=== PATIENT | male | born 1980 | race Two or more races ===

== ENCOUNTER 2018-01-19 18:01 | Inpatient (IN) | payer SELFPAY ==
[~2018-01-19] VITALS: Ht 144.8 cm; Wt 54.0 kg
[2018-01-19] MEDS ORDERED: NKM (18:11)
[2018-01-19 18:12] VITALS: BP 129/89
[2018-01-19] MEDS ORDERED: Morphine Sulfate 4mg/ml Inj IVP ONE (18:45)
--- NOTE | 2018-01-19 18:52 | Emergency Room Report ---
History of Present Illness General Chief Complaint: Abdominal Pain Source: Patient Present Illness HPI 37-year-old male, unknown past medical history however likely alcohol abuse, ascites, has required paracentesis in the past, has last paracentesis was one month ago, presenting with abdominal pain. States that he has had abdominal pain for the last 3 days. Peripartum restrained but denies nausea vomiting diarrhea. Allergies: Coded Allergies: No Known Allergies (Verified , 07/05/07) Patient History Past Medical History: see triage record Past Surgical History: none Pertinent Family History: none Reviewed Nursing Documentation: PMH: Agreed; PSxH: Agreed Nursing Documentation-PMH Past Medical History: No History, Except For Hx Hypertension: Yes Hx Diabetes: Yes Hx Gastrointestinal Problems: Yes - stomach ulcer, liver cirrhosis Review of Systems All Other Systems: negative except mentioned in HPI Physical Exam Vital Signs Date Time Temp Pulse Resp B/P (MAP) Pulse Ox O2 Delivery O2 Flow Rate FiO2 01/19/18 18:05 98.4 129 24 142/103 98 Room Air 98.4 Sp02 EP Interpretation: reviewed, normal General Appearance: alert, GCS 15, non-toxic, moderate distress Head: normocephalic, atraumatic Eyes: bilateral eye normal inspection, bilateral eye PERRL, bilateral eye EOMI ENT: normal ENT inspection, normal pharynx, normal voice, moist mucus membranes Neck: normal inspection, full range of motion, supple Respiratory: normal inspection, lungs clear, normal breath sounds, no respiratory distress, no retraction, no wheezing, speaking full sentences, chest symmetrical Cardiovascular #1: normal inspection, regular rate, rhythm, no edema, normal capillary refill Cardiovascular #2: 2+ radial (R), 2+ radial (L) Gastrointestinal: other - ascites with generalized tenderness Genitourinary: no CVA tenderness Musculoskeletal: normal inspection, back normal, normal range of motion, non- tender Neurologic: normal inspection, alert, oriented x3, responsive, motor strength/ tone normal, sensory intact, normal gait, speech normal Psychiatric: normal inspection, judgement/insight normal, memory normal Skin: normal inspection, normal color, no rash, warm/dry, well hydrated, normal turgor Procedures Additional Procedure Procedure Narrative Procedure: Paracentesis Paracentesis performed, right lower quadrant, yellow ascitic fluid obtained Full sterile precautions Patient tolerated procedure well No complications Medical Decision Making Diagnostic Impression: Primary Impression: Ascites Additional Impressions: Cirrhosis Hypokalemia Abdominal pain ER Course 37-year-old male, ascites, abdominal pain Differential Diagnosis: SBP, Gastritis, gastroenteritis, cholecystitis, appendicitis, diverticulitis, SBO, mesenteric ischemia, UTI/pyelo Plan: Basic labs, ua, ekg pain control, IVF CT abdopelvis Paracentesis ER course: Paracentesis performed, 6 L removed, Patient's abdomen now more soft and less tender patient remains tachycardic, heart rate 130s, blood pressure is normal Ceftriaxone given Disposition: Admitted to telemetry Discussed with Dr. montgomery who has accepted patient for admission Strict return precautions discussed with patient such as fever, chills, worsening/severe abdominal pain, nausea, vomiting, black or bloody stools, which may indicate severe illness. Patient verbalizes understanding and agrees with plan. Please note that this Emergency Department Report was dictated using [employer] account executive technology software, occasionally this can lead to erroneous entry secondary to interpretation by the dictation equipment EKG Diagnostic Results EP Interpretation: Yes Rate tachycardic Rhythm: NSR ST Segments: T-wave inversions in leads 3, aVF, V5 and V6, V3 V4 ASA given to patient: No Rhythm Strip EP Interpretation: Yes Rate: 126 Rhythm: NSR, no PVCs, no ectopy Chest X-ray CXR: Ordered: Yes 1 view Indication: Pain EP interpretation: Yes Interpretation: ELEVATED bl hemidiaphragm 2/2 to ascites Impression: ELEVATED bl hemidiaphragm 2/2 to ascites Electronically signed by Clay Sosa MD Laboratory Tests Test 01/19/18 19:00 01/19/18 19:49 White Blood Count 6.0 K/UL (4.8-10.8) Red Blood Count 2.71 M/UL (4.70-6.10) L Hemoglobin 8.6 G/DL (14.2-18.0) L Hematocrit 26.3 % (42.0-52.0) L Mean Corpuscular Volume 97 FL (80-99) Mean Corpuscular Hemoglobin 31.6 PG (27.0-31.0) H Mean Corpuscular Hemoglobin Concent 32.6 G/DL (32.0-36.0) Red Cell Distribution Width 13.8 % (11.6-14.8) Platelet Count 120 K/UL (150-450) L Mean Platelet Volume 6.2 FL (6.5-10.1) L Neutrophils (%) (Auto) 64.9 % (45.0-75.0) Lymphocytes (%) (Auto) 22.4 % (20.0-45.0) Monocytes (%) (Auto) 8.9 % (1.0-10.0) Eosinophils (%) (Auto) 2.6 % (0.0-3.0) Basophils (%) (Auto) 1.3 % (0.0-2.0) Sodium Level 142 MMOL/L (136-145) Potassium Level 3.2 MMOL/L (3.5-5.1) L Chloride Level 112 MMOL/L (98-107) H Carbon Dioxide Level 21 MMOL/L (21-32) Anion Gap 10 mmol/L (5-15) Blood Urea Nitrogen 13 mg/dL (7-18) Creatinine 0.7 MG/DL (0.55-1.30) Estimate Glomerular Filtration Rate > 60 mL/min (>60) Glucose Level 115 MG/DL (74-106) H Lactic Acid Level 1.80 mmol/L (0.66-2.22) Calcium Level 7.6 MG/DL (8.5-10.1) L Total Bilirubin 1.2 MG/DL (0.2-1.0) H Direct Bilirubin 0.8 MG/DL (0.0-0.3) H Aspartate Amino Transferase (AST) 63 U/L (15-37) H Alanine Aminotransferase (ALT) 18 U/L (12-78) Alkaline Phosphatase 251 U/L (46-116) H Total Creatine Kinase 37 U/L (26-308) Troponin I 0.001 ng/mL (0.000-0.056) Pro-B-Type Natriuretic Peptide 180 pg/mL (0-125) H Total Protein 6.7 G/DL (6.4-8.2) Albumin 2.2 G/DL (3.4-5.0) L Globulin 4.5 g/dL Albumin/Globulin Ratio 0.5 (1.0-2.7) L Lipase 231 U/L (73-393) Serum Alcohol 216 mg/dL Body Fluid Source Pending Body Fluid Volume Pending Body Fluid Appearance Pending Body Fluid RBC Pending Body Fluid Total Nucleated Cells Pending Body Fluid Polynuclear WBCs (%) Pending Body Fluid Mononuclear WBCs (%) Pending Body Fluid Mesothelial Cells (%) Pending Body Fluid Total Protein Pending Body Fluid Albumin Pending CT/MRI/US Diagnostic Results CT/MRI/US Diagnostic Results : Imaging Test Ordered: CT ABDO PELVIS Impression CT ABDOMEN & PELVIS With Contrast: Compared to CT abdomen and pelvis 07/05/2007 Bilateral consolidation, may be due to pneumonia or malignancy. Followup to clearing. Small bilateral pleural effusions. Evidence of enterocolitis, infectious or inflammatory, with diffuse small and large bowel wall thickening and adjacent edema. No bowel obstruction. Unremarkable appendix. No CT evidence of acute cholecystitis or acute pancreatitis. No urinary obstruction. Urinary bladder wall thickening, likely due to cystitis. Mild splenomegaly. Moderate ascites. No free air. Last Vital Signs Date Time Temp Pulse Resp B/P (MAP) Pulse Ox O2 Delivery O2 Flow Rate FiO2 01/19/18 18:12 98.5 128 24 129/89 97 Room Air 98.5 Disposition: ADMITTED INPATIENT Condition: Serious Clay Sosa M.D. Jan 19, 2018 18:51
[2018-01-19 19:26] LABS: BASOPHILS % (AUTO) 1.3 % (0.0-2.0); EOSINOPHILS % (AUTO) 2.6 % (0.0-3.0); HEMATOCRIT 26.3 % (42.0-52.0); HEMOGLOBIN 8.6 G/DL (14.2-18.0); LYMPHOCYTES % (AUTO) 22.4 % (20.0-45.0); MEAN CORPUSCULAR VOLUME 97 FL (80-99); MONOCYTES % (AUTO) 8.9 % (1.0-10.0); NEUTROPHILS % (AUTO) 64.9 % (45.0-75.0); PLATELET COUNT 120 K/UL (150-450); RED BLOOD COUNT 2.71 M/UL (4.70-6.10); RED CELL DISTRIBUTION WIDTH 13.8 % (11.6-14.8)
[2018-01-19 19:37] LABS: ANION GAP 10 mmol/L (5-15); BLOOD UREA NITROGEN 13 mg/dL (7-18); CALCIUM 7.6 MG/DL (8.5-10.1); CARBON DIOXIDE 21 MMOL/L (21-32); CHLORIDE 112 MMOL/L (98-107); CREATININE 0.7 MG/DL (0.55-1.30); POTASSIUM 3.2 MMOL/L (3.5-5.1); SODIUM 142 MMOL/L (136-145)
[2018-01-19 19:53] LABS: ALANINE AMINOTRANSFERASE 18 U/L (12-78); ALBUMIN 2.2 G/DL (3.4-5.0); ALBUMIN/GLOBULIN RATIO 0.5 (1.0-2.7); ALKALINE PHOSPHATASE 251 U/L (46-116); ASPARTATE AMINO TRANSFERASE 63 U/L (15-37); BILIRUBIN,TOTAL 1.2 MG/DL (0.2-1.0); CREATINE KINASE 37 U/L (26-308)
[2018-01-19 20:02] LABS: BILIRUBIN,DIRECT 0.8 MG/DL (0.0-0.3)
[2018-01-19] MEDS ORDERED: cefTRIAXone 1 GM in NS 55 ML IVPB ONE (20:15)
[2018-01-19 21:20] VITALS: BP 112/78
[2018-01-19 21:48] VITALS: BP 123/83
[2018-01-19] MEDS ORDERED: LORazepam Inj 2mg/ml 1ml IV PRN (22:00)
[2018-01-19] MEDS ORDERED: Mylanta II UD 30ml ORAL PRN (22:00)
[2018-01-19] MEDS ORDERED: Miralax 17gm pkt ORAL PRN (22:00)
[2018-01-19] MEDS ORDERED: Zolpidem 5mg tab ORAL PRN (22:00)
[2018-01-20] VITALS: BP 123/83
[2018-01-20] MEDS: Cefepime HCl 1 GM in D5W 110 ML IV SCH ×4 (00:35→21:19)
[2018-01-20] MEDS: Lactulose 20gm/30ml UDC ORAL SCH ×4 (00:35→18:05)
[2018-01-20] MEDS: Morphine Sulfate 4mg/ml Inj IVP PRN ×2 (00:41→12:56)
[2018-01-20 04:00] VITALS: BP 134/71
[2018-01-20 05:16] LABS: BASOPHILS % (AUTO) 1.5 % (0.0-2.0); EOSINOPHILS % (AUTO) 1.6 % (0.0-3.0); HEMATOCRIT 24.9 % (42.0-52.0); HEMOGLOBIN 8.6 G/DL (14.2-18.0); LYMPHOCYTES % (AUTO) 18.5 % (20.0-45.0); MEAN CORPUSCULAR VOLUME 96 FL (80-99); MONOCYTES % (AUTO) 10.4 % (1.0-10.0); NEUTROPHILS % (AUTO) 68.1 % (45.0-75.0); PLATELET COUNT 103 K/UL (150-450); RED BLOOD COUNT 2.61 M/UL (4.70-6.10); RED CELL DISTRIBUTION WIDTH 13.7 % (11.6-14.8); WHITE BLOOD COUNT 4.1 K/UL (4.8-10.8)
[2018-01-20 05:30] LABS: INR 1.5 (0.9-1.1)
[2018-01-20 05:37] LABS: AMMONIA 70 umol/L (11-32)
[2018-01-20 05:42] LABS: ANION GAP 9 mmol/L (5-15); BLOOD UREA NITROGEN 11 mg/dL (7-18); CALCIUM 7.6 MG/DL (8.5-10.1); CARBON DIOXIDE 22 MMOL/L (21-32); CHLORIDE 111 MMOL/L (98-107); CREATININE 0.6 MG/DL (0.55-1.30); POTASSIUM 3.7 MMOL/L (3.5-5.1); SODIUM 141 MMOL/L (136-145)
[2018-01-20 05:51] LABS: ALANINE AMINOTRANSFERASE 14 U/L (12-78); ALBUMIN 1.8 G/DL (3.4-5.0); ALBUMIN/GLOBULIN RATIO 0.4 (1.0-2.7); ALKALINE PHOSPHATASE 214 U/L (46-116); ASPARTATE AMINO TRANSFERASE 55 U/L (15-37); BILIRUBIN,TOTAL 1.1 MG/DL (0.2-1.0); CHOLESTEROL 137 MG/DL (< 200); HDL CHOLESTEROL 43 MG/DL (40-60); TRIGLYCERIDES 62 MG/DL (30-150)
[2018-01-20 06:41] LABS: BILIRUBIN,DIRECT 0.6 MG/DL (0.0-0.3)
[2018-01-20 08:12] VITALS: BP 136/93
--- NOTE | 2018-01-20 09:42 | Diagnostic Imaging Report ---
Clinical Indication: Abdominal pain, distention, status post paracentesis Technique: No oral contrast utilized, per emergency room physician request IV administration nonionic contrast. Venous phase spiral acquisition obtained through the abdomen and pelvis. Multiplanar reconstructions were generated. Total dose length product 718.69 mGycm. CTDIvol(s) 11.59 mGy. Dose reduction achieved using automated exposure control Comparison: 07/05/2007 Findings: Gas bubbles are seen in the right abdominal wall musculature, likely related to recent paracentesis. There is a moderate to large amount of ascites fluid present. No free intraperitoneal air demonstrated. The ascites fluid demonstrates normal fluid attenuation. There are small bilateral pleural effusions present. There is resultant compressive atelectasis at both lung bases. There is also patchy areas of parenchymal consolidation bilaterally There is mild edema of the subcutaneous fat. The heart is mildly enlarged The stomach is filled with food. Lack of enteric contrast limits assessment of solid organs. Proximal small bowel loops are mildly dilated and diffusely thick walled. No abrupt transition point is demonstrated. Distal small bowel loops are nondilated, but the plaza appear mildly edematous. What is probably a normal appendix is demonstrated. There is mild thickening of the wall of the ascending and transverse colon, more questionable thickening of the wall of the distal colon. There are a few colonic diverticula. No free intraperitoneal air. The distal esophagus, stomach, duodenum are unremarkable. There is a small umbilical hernia which contains fluid. The liver is normal in attenuation on the current exam, unlike previously. However, it is considerably smaller and there is surface nodularity. No focal hepatic abnormality There has been interim development of a recanalized periumbilical vein varices as well as small perigastric and periesophageal varices. The spleen is now enlarged. This is a new finding since the prior study. It measures 15.5 cm long axis dimension. The kidneys are unremarkable. No retroperitoneal or mesenteric mass or adenopathy. No pelvic mass or adenopathy. The bladder wall is equivocally mildly thickened, but it is not very distended The bones are unremarkable except for mild degenerative changes of the lumbosacral junction. Impression: Moderately dilated thick walled proximal small bowel loops. Possibly a manifestation of anasarca (see below) but more likely indicates enteritis. Correlate with clinical findings. There is also mild wall thickening of the proximal colon, which likely indicates a component of colitis Gas bubbles in the right abdominal wall musculature, likely iatrogenic related to recent paracentesis Moderate to large amount of ascites fluid present, despite recent paracentesis. Evidence of hepatic cirrhosis, with mildly atrophic liver with nodular surface. Note that previously demonstrated hepatic steatosis is resolved Evidence of portal hypertension, with recanalized paraumbilical vein varices, small perigastric and periesophageal varices, splenomegaly and, as mentioned above, ascites Other manifestations of mild anasarca, including bilateral small pleural effusions and mild edema of the subcutaneous fat. Probably related to the hepatocellular disease Bilateral pulmonary parenchymal atelectasis and consolidation Equivocal mild bladder wall thickening, could indicate cystitis, more likely an artifact of under distention Incidental findings of small umbilical hernia containing ascites, mild degenerative lumbar spondylosis This agrees with the preliminary interpretation provided overnight by [facility] teleradiology service. The CT scanner at [facility] is accredited by the [employer] and the scans are performed using protocols designed to limit radiation exposure to as low as reasonably achievable to attain images of sufficient resolution adequate for diagnostic evaluation.
[2018-01-20 11:45] VITALS: BP 127/90
--- NOTE | 2018-01-20 14:34 | GI Initial Consult Note ---
History of Present Illness General Date patient seen: Jan 20, 2018 Time patient seen: 14:29 Reason for Hospitalization: Abdominal Pain Referring physician: MARGIE HUNG Reason for Consultation: CIRRHOSIS Present Illness HPI 37-year-old male, unknown past medical history however likely alcohol abuse, ascites, has required paracentesis in the past, has last paracentesis was one month ago, presenting with abdominal pain. States that he has had abdominal pain for the last 3 days. Peripartum restrained but denies nausea vomiting diarrhea. GI consulted for cirrhosis. ROS limited, patient has encephalopathy. Patient seen, lethargic and confused. Noted to have massive ascites, s/p paracentesis yielding over 6L of fluid. Patient presents today with pancytopenia, abnormal LFTs, elevated ETOH serum and elevated ammonia levels. Unknown history of endoscopy / colonoscopy. Home Meds Reported Medications No Known Medications* (NKM - No Known Medications*) ., 0 ., 0 Refills 01/19/18 Med list reviewed/reconciled: Yes Allergies: Coded Allergies: No Known Allergies (Verified , 07/05/07) Patient History Limited by: medical condition History Provided By: Medical Record PMH Narrative Past Medical History: see triage record Past Surgical History: none Pertinent Family History: none Reviewed Nursing Documentation: PMH: Agreed; PSxH: Agreed Nursing Documentation-PMH Past Medical History: No History, Except For Hx Hypertension: Yes Hx Diabetes: Yes Hx Gastrointestinal Problems: Yes - stomach ulcer, liver cirrhosis Social History: Reports: alcohol use Review of Systems All Other Systems: limited Physical Exam Vital Signs Date Time Temp Pulse Resp B/P (MAP) Pulse Ox O2 Delivery O2 Flow Rate FiO2 01/19/18 18:05 98.4 129 24 142/103 98 Room Air 98.4 Sp02 EP Interpretation: reviewed, normal Labs Laboratory Tests Test 01/19/18 19:00 01/19/18 19:49 01/20/18 04:45 White Blood Count 6.0 K/UL (4.8-10.8) 4.1 K/UL (4.8-10.8) L Red Blood Count 2.71 M/UL (4.70-6.10) L 2.61 M/UL (4.70-6.10) L Hemoglobin 8.6 G/DL (14.2-18.0) L 8.6 G/DL (14.2-18.0) L Hematocrit 26.3 % (42.0-52.0) L 24.9 % (42.0-52.0) L Mean Corpuscular Volume 97 FL (80-99) 96 FL (80-99) Mean Corpuscular Hemoglobin 31.6 PG (27.0-31.0) H 32.9 PG (27.0-31.0) H Mean Corpuscular Hemoglobin Concent 32.6 G/DL (32.0-36.0) 34.3 G/DL (32.0-36.0) Red Cell Distribution Width 13.8 % (11.6-14.8) 13.7 % (11.6-14.8) Platelet Count 120 K/UL (150-450) L 103 K/UL (150-450) L Mean Platelet Volume 6.2 FL (6.5-10.1) L 5.8 FL (6.5-10.1) L Neutrophils (%) (Auto) 64.9 % (45.0-75.0) 68.1 % (45.0-75.0) Lymphocytes (%) (Auto) 22.4 % (20.0-45.0) 18.5 % (20.0-45.0) L Monocytes (%) (Auto) 8.9 % (1.0-10.0) 10.4 % (1.0-10.0) H Eosinophils (%) (Auto) 2.6 % (0.0-3.0) 1.6 % (0.0-3.0) Basophils (%) (Auto) 1.3 % (0.0-2.0) 1.5 % (0.0-2.0) Sodium Level 142 MMOL/L (136-145) 141 MMOL/L (136-145) Potassium Level 3.2 MMOL/L (3.5-5.1) L 3.7 MMOL/L (3.5-5.1) Chloride Level 112 MMOL/L (98-107) H 111 MMOL/L (98-107) H Carbon Dioxide Level 21 MMOL/L (21-32) 22 MMOL/L (21-32) Anion Gap 10 mmol/L (5-15) 9 mmol/L (5-15) Blood Urea Nitrogen 13 mg/dL (7-18) 11 mg/dL (7-18) Creatinine 0.7 MG/DL (0.55-1.30) 0.6 MG/DL (0.55-1.30) Estimat Glomerular Filtration Rate > 60 mL/min (>60) > 60 mL/min (>60) Glucose Level 115 MG/DL (74-106) H 102 MG/DL (74-106) Lactic Acid Level 1.80 mmol/L (0.66-2.22) Calcium Level 7.6 MG/DL (8.5-10.1) L 7.6 MG/DL (8.5-10.1) L Total Bilirubin 1.2 MG/DL (0.2-1.0) H 1.1 MG/DL (0.2-1.0) H Direct Bilirubin 0.8 MG/DL (0.0-0.3) H 0.6 MG/DL (0.0-0.3) H Aspartate Amino Transf (AST/SGOT) 63 U/L (15-37) H 55 U/L (15-37) H Alanine Aminotransferase (ALT/SGPT) 18 U/L (12-78) 14 U/L (12-78) Alkaline Phosphatase 251 U/L (46-116) H 214 U/L (46-116) H Total Creatine Kinase 37 U/L (26-308) Troponin I 0.001 ng/mL (0.000-0.056) Pro-B-Type Natriuretic Peptide 180 pg/mL (0-125) H Total Protein 6.7 G/DL (6.4-8.2) 6.2 G/DL (6.4-8.2) L Albumin 2.2 G/DL (3.4-5.0) L 1.8 G/DL (3.4-5.0) L Globulin 4.5 g/dL 4.4 g/dL Albumin/Globulin Ratio 0.5 (1.0-2.7) L 0.4 (1.0-2.7) L Lipase 231 U/L (73-393) Serum Alcohol 216 mg/dL Body Fluid Source Paracentesis Body Fluid Volume 24 mL Body Fluid Appearance Hazy Body Fluid RBC 122 /CUMM Body Fluid Total Nucleated Cells 35 /CUMM Body Fluid Polynuclear WBCs (%) 5 % Body Fluid Mononuclear WBCs (%) 48 % Body Fluid Mesothelial Cells (%) 47 % Body Fluid Glucose Pending Body Fluid Total Protein 1.2 g/dL (.) Body Fluid Albumin 0.5 g/dL (.) Prothrombin Time 15.6 SEC (9.30-11.50) H Prothromb Time International Ratio 1.5 (0.9-1.1) H Activated Partial Thromboplast Time 33 SEC (23-33) Ammonia 70 umol/L (11-32) H Triglycerides Level 62 MG/DL (30-150) Cholesterol Level 137 MG/DL (< 200) LDL Cholesterol 82 mg/dL (<100) HDL Cholesterol 43 MG/DL (40-60) Cholesterol/HDL Ratio 3.2 (3.3-4.4) L Thyroid Stimulating Hormone (TSH) 6.689 uiU/mL (0.358-3.740) General Appearance: no apparent distress, lethargic, thin Head: normocephalic EENT: PERRL/EOMI, normal ENT inspection Neck: supple Respiratory: normal breath sounds, no respiratory distress Cardiovascular: normal rate Gastrointestinal: soft, non-distended, ascites Rectal: deferred Genitourinary: deferred Musculoskeletal: normal inspection, back normal Neurologic: alert, responsive Skin: normal inspection, normal color, no rash, warm/dry, palpation normal, well hydrated Lymphatic: normal inspection, no adenopathy Current Medications Current Medications Medications (Trade) Dose Ordered Sig/[place] Route PRN Reason Start Time Stop Time Status Last Admin Dose Admin Acetaminophen (Tylenol) 650 mg Q4H PRN ORAL T>100.5 01/19/18 22:00 02/18/18 21:59 Al Hydroxide/Mg Hydroxide (Mylanta II) 30 ml Q6H PRN ORAL dyspepsia 01/19/18 22:00 02/18/18 21:59 Cefepime HCl 1 gm/ Dextrose 110 ml @ 220 mls/hr EVERY 8 HOURS IV 01/19/18 23:00 01/26/18 22:59 01/20/18 12:56 Dextrose (Dextrose 50%) 25 ml STAT PRN IV Hypoglycemia 01/19/18 22:00 02/18/18 21:59 Dextrose (Dextrose 50%) 50 ml STAT PRN IV Hypoglycemia 01/19/18 22:00 02/18/18 21:59 Lactulose (Cephulac) 30 gm EVERY 6 HOURS ORAL 01/20/18 00:00 02/19/18 00:00 01/20/18 12:56 Lorazepam (Ativan 2mg/ml 1ml) 0.5 mg Q4H PRN IV For Anxiety 01/19/18 22:00 01/26/18 21:59 Morphine Sulfate (Morphine Sulfate) 2 mg Q4H PRN IVP PAIN 4-10 01/19/18 22:00 01/26/18 21:59 01/20/18 12:56 Ondansetron HCl (Zofran) 4 mg Q6H PRN IVP Nausea & Vomiting 01/19/18 22:00 02/18/18 21:59 Polyethylene Glycol (Miralax) 17 gm HSPRN PRN ORAL Constipation 01/19/18 22:00 02/18/18 21:59 Zolpidem Tartrate (Ambien) 5 mg HSPRN PRN ORAL Insomnia 01/19/18 22:00 01/26/18 21:59 GI: Plan Problems: (1) Abdominal pain (2) Cirrhosis (3) Ascites (4) Hypokalemia Plan s/p paracentesis yielding 6L of fluid >> r/o SBP anemia work up OB stool r/o GI bleed monitor H&H, prn transfusions ordered hepatitis panel start lactulose + Xifaxan trend LFTs, ammonia levels prn transfusions albumin x 1 fu labs Discuss[address] with Dr. Baires. Thank you for this patient referral, we will follow. Aurora Ray N.P. Jan 20, 2018 14:34
[2018-01-20] MEDS ORDERED: Tubing IV Secondary IV ONE (15:25)
[2018-01-20 15:39] VITALS: BP 130/85
--- NOTE | 2018-01-20 16:24 | Cardiology Report ---
APPROVED REPORT EKG Measurement Heart [id number] [id number] Sinus tachycardia Left posterior fascicular block Inferior infarct, age undetermined T wave abnormality, consider anterolateral ischemia Abnormal ECG
[2018-01-20] MEDS ORDERED: Lactulose 20gm/30ml UDC ORAL SCH (18:00)
--- NOTE | 2018-01-20 19:58 | History and Physical ---
History of Present Illness General Date patient seen: Jan 20, 2018 Reason for Hospitalization: Abdominal Pain Present Illness Allergies: Coded Allergies: No Known Allergies (Verified , 07/05/07) Medication History Scheduled No Known Medications* (NKM - No Known Medications*), 0 ., (Reported) Patient History Healthcare decision maker Resuscitation status Full Code Advanced Directive on File No Past Medical/Surgical History Past Medical/Surgical History: (1) Cirrhosis Review of Systems All Other Systems: negative except mentioned in HPI Physical Exam General Appearance: cachetic Lines, tubes and drains: peripheral HEENT: normocephalic, atraumatic Neck: non-tender, supple Breasts: no masses Cardiovascular/Chest: normal peripheral pulses Abdomen: distended Genitourinary/Rectal: normal genital exam, normal rectal exam Extremities: moderate edema Skin Exam: normal pigmentation Last 24 Hour Vital Signs Date Time Temp Pulse Resp B/P (MAP) Pulse Ox O2 Delivery O2 Flow Rate FiO2 01/20/18 15:39 96.3 104 18 130/85 98 96.3 01/20/18 13:26 98.1 01/20/18 12:56 98.1 01/20/18 11:45 98.1 110 18 127/90 100 98.1 01/20/18 08:12 98.2 115 18 136/93 100 98.2 01/20/18 04:00 98.1 71 16 134/71 97 98.1 01/20/18 00:41 97.9 01/20/18 00:00 98.2 117 17 123/83 95 98.2 01/19/18 21:48 97.9 119 16 123/83 96 97.9 01/19/18 21:44 99.0 128 16 112/78 96 Room Air 99.0 116 01/19/18 21:20 99.0 116 16 112/78 96 Room Air 99.0 Intake and Output 01/19/18 01/20/18 19:00 07:00 Intake Total 0 ml 910 ml Balance 0 ml 910 ml Intake Oral 0 ml 800 ml IV Total 110 ml # Voids 2 Laboratory Tests Test 01/20/18 04:45 White Blood Count 4.1 K/UL (4.8-10.8) L Red Blood Count 2.61 M/UL (4.70-6.10) L Hemoglobin 8.6 G/DL (14.2-18.0) L Hematocrit 24.9 % (42.0-52.0) L Mean Corpuscular Volume 96 FL (80-99) Mean Corpuscular Hemoglobin 32.9 PG (27.0-31.0) H Mean Corpuscular Hemoglobin Concent 34.3 G/DL (32.0-36.0) Red Cell Distribution Width 13.7 % (11.6-14.8) Platelet Count 103 K/UL (150-450) L Mean Platelet Volume 5.8 FL (6.5-10.1) L Neutrophils (%) (Auto) 68.1 % (45.0-75.0) Lymphocytes (%) (Auto) 18.5 % (20.0-45.0) L Monocytes (%) (Auto) 10.4 % (1.0-10.0) H Eosinophils (%) (Auto) 1.6 % (0.0-3.0) Basophils (%) (Auto) 1.5 % (0.0-2.0) Prothrombin Time 15.6 SEC (9.30-11.50) H Prothromb Time International Ratio 1.5 (0.9-1.1) H Activated Partial Thromboplast Time 33 SEC (23-33) Sodium Level 141 MMOL/L (136-145) Potassium Level 3.7 MMOL/L (3.5-5.1) Chloride Level 111 MMOL/L (98-107) H Carbon Dioxide Level 22 MMOL/L (21-32) Anion Gap 9 mmol/L (5-15) Blood Urea Nitrogen 11 mg/dL (7-18) Creatinine 0.6 MG/DL (0.55-1.30) Estimat Glomerular Filtration Rate > 60 mL/min (>60) Glucose Level 102 MG/DL (74-106) Calcium Level 7.6 MG/DL (8.5-10.1) L Total Bilirubin 1.1 MG/DL (0.2-1.0) H Direct Bilirubin 0.6 MG/DL (0.0-0.3) H Aspartate Amino Transf (AST/SGOT) 55 U/L (15-37) H Alanine Aminotransferase (ALT/SGPT) 14 U/L (12-78) Alkaline Phosphatase 214 U/L (46-116) H Ammonia 70 umol/L (11-32) H Total Protein 6.2 G/DL (6.4-8.2) L Albumin 1.8 G/DL (3.4-5.0) L Globulin 4.4 g/dL Albumin/Globulin Ratio 0.4 (1.0-2.7) L Triglycerides Level 62 MG/DL (30-150) Cholesterol Level 137 MG/DL (< 200) LDL Cholesterol 82 mg/dL (<100) HDL Cholesterol 43 MG/DL (40-60) Cholesterol/HDL Ratio 3.2 (3.3-4.4) L Thyroid Stimulating Hormone (TSH) 6.689 uiU/mL (0.358-3.740) Height (Feet): 4 Height (Inches): 9.00 Weight (Pounds): 119 Medications Current Medications Medications (Trade) Dose Ordered Sig/[place] Route PRN Reason Start Time Stop Time Status Last Admin Dose Admin Acetaminophen (Tylenol) 650 mg Q4H PRN ORAL T>100.5 01/19/18 22:00 02/18/18 21:59 Al Hydroxide/Mg Hydroxide (Mylanta II) 30 ml Q6H PRN ORAL dyspepsia 01/19/18 22:00 02/18/18 21:59 Albumin Human 100 ml @ 100 mls/hr ONCE ONCE IV 01/20/18 19:15 01/20/18 20:14 01/20/18 19:15 Cefepime HCl 1 gm/ Dextrose 110 ml @ 220 mls/hr EVERY 8 HOURS IV 01/19/18 23:00 01/26/18 22:59 01/20/18 12:56 Dextrose (Dextrose 50%) 25 ml STAT PRN IV Hypoglycemia 01/19/18 22:00 02/18/18 21:59 Dextrose (Dextrose 50%) 50 ml STAT PRN IV Hypoglycemia 01/19/18 22:00 02/18/18 21:59 Lactulose (Cephulac) 30 gm EVERY 6 HOURS ORAL 01/20/18 00:00 02/19/18 00:00 01/20/18 18:05 Lorazepam (Ativan 2mg/ml 1ml) 0.5 mg Q4H PRN IV For Anxiety 01/19/18 22:00 01/26/18 21:59 Morphine Sulfate (Morphine Sulfate) 2 mg Q4H PRN IVP PAIN -18 22:00 01/26/18 21:59 01/20/18 12:56 Ondansetron HCl (Zofran) 4 mg Q6H PRN IVP Nausea & Vomiting 01/19/18 22:00 02/18/18 21:59 Polyethylene Glycol (Miralax) 17 gm HSPRN PRN ORAL Constipation 01/19/18 22:00 02/18/18 21:59 Rifaximin (Xifaxan) 550 mg EVERY 12 HOURS ORAL 01/20/18 21:00 01/27/18 20:59 Zolpidem Tartrate (Ambien) 5 mg HSPRN PRN ORAL Insomnia 01/19/18 22:00 01/26/18 21:59 Assessment/Plan Problem List: (1) Ascites ICD Codes: R18.8 - Other ascites SNOMED: 633088903 (2) Abdominal pain ICD Codes: R10.9 - Unspecified abdominal pain SNOMED: 29133268 (3) Cirrhosis ICD Codes: K74.60 - Unspecified cirrhosis of liver SNOMED: 69763796 (4) Hypokalemia ICD Codes: E87.6 - Hypokalemia SNOMED: 54691918 Assessment/Plan s/p paracentesis, social service consult GI f/u Jelly Pyle MD Jan 20, 2018 19:58
[2018-01-20 20:00] VITALS: BP 123/85
[2018-01-21] VITALS: BP 123/82
[2018-01-21] MEDS: Lactulose 20gm/30ml UDC ORAL SCH ×4 (01:04→18:00)
[2018-01-21 04:00] VITALS: BP 117/75
[2018-01-21] MEDS: Cefepime HCl 1 GM in D5W 110 ML IV SCH ×2 (05:35→13:21)
[2018-01-21 08:00] VITALS: BP 125/84
--- NOTE | 2018-01-21 10:40 | GI Progress Note ---
Assessment/Plan Problems: (1) Cirrhosis ICD Codes: K74.60 - Unspecified cirrhosis of liver SNOMED: 42238390 (2) Abdominal pain ICD Codes: R10.9 - Unspecified abdominal pain SNOMED: 98174325 (3) Ascites ICD Codes: R18.8 - Other ascites SNOMED: 518309050 Status: unchanged Status Narrative Discussed with Dr. Baires. Assessment/Plan s/p paracentesis yielding 6L of fluid >> r/o SBP anemia work up OB stool r/o GI bleed monitor H&H, prn transfusions fu hepatitis panel lactulose + Xifaxan trend LFTs, ammonia levels prn transfusions albumin x 1 fu labs Subjective Subjective limited Objective Last 24 Hour Vital Signs Date Time Temp Pulse Resp B/P (MAP) Pulse Ox O2 Delivery O2 Flow Rate FiO2 01/21/18 08:44 Room Air 01/21/18 08:00 98.4 88 18 125/84 98 98.4 01/21/18 04:00 98.2 85 17 117/75 97 98.2 01/21/18 00:00 97.0 88 17 123/82 97 97.0 01/20/18 20:00 97.7 98 18 123/85 98 97.7 01/20/18 15:39 96.3 104 18 130/85 98 96.3 01/20/18 13:26 98.1 01/20/18 12:56 98.1 01/20/18 11:45 98.1 110 18 127/90 100 98.1 Intake and Output 01/20/18 01/21/18 19:00 07:00 Intake Total 1080 ml 520 ml Output Total 300 ml Balance 780 ml 520 ml Intake Oral 1080 ml 300 ml IV Total 220 ml Output Urine Total 300 ml # Bowel Movements 3 5 Height (Feet): 4 Height (Inches): 9.00 Weight (Pounds): 119 General Appearance: no apparent distress, thin Cardiovascular: normal rate Respiratory/Chest: no respiratory distress Abdominal Exam: normal bowel sounds, non tender, soft, ascites Extremities: non-tender Aurora Ray N.P. Jan 21, 2018 10:40
[2018-01-21 12:00] VITALS: BP 124/86
[2018-01-21 12:00] LABS: HEMATOCRIT 26.4 % (42.0-52.0); MEAN CORPUSCULAR VOLUME 97 FL (80-99); PLATELET COUNT 79 K/UL (150-450); RED BLOOD COUNT 2.73 M/UL (4.70-6.10); RED CELL DISTRIBUTION WIDTH 13.7 % (11.6-14.8); WHITE BLOOD COUNT 2.9 K/UL (4.8-10.8)
[2018-01-21 12:14] LABS: AMMONIA 66 umol/L (11-32)
[2018-01-21 12:30] LABS: ALANINE AMINOTRANSFERASE 18 U/L (12-78); ALBUMIN 2.3 G/DL (3.4-5.0); ALBUMIN/GLOBULIN RATIO 0.6 (1.0-2.7); ALKALINE PHOSPHATASE 161 U/L (46-116); ANION GAP 7 mmol/L (5-15); ASPARTATE AMINO TRANSFERASE 51 U/L (15-37); BILIRUBIN,TOTAL 2.3 MG/DL (0.2-1.0); BLOOD UREA NITROGEN 8 mg/dL (7-18); CALCIUM 7.9 MG/DL (8.5-10.1); CARBON DIOXIDE 21 MMOL/L (21-32); CHLORIDE 108 MMOL/L (98-107); CREATININE 0.7 MG/DL (0.55-1.30); PHOSPHORUS 4.1 MG/DL (2.5-4.9); POTASSIUM 3.2 MMOL/L (3.5-5.1); SODIUM 136 MMOL/L (136-145)
[2018-01-21 12:31] LABS: BILIRUBIN,DIRECT 0.9 MG/DL (0.0-0.3)
[2018-01-21 16:00] VITALS: BP 122/91
--- NOTE | 2018-01-21 19:18 | Pulmonology Progress Note ---
Assessment/Plan Problems: (1) Ascites (2) Abdominal pain (3) Cirrhosis (4) Hypokalemia Assessment/Plan improving wants go to on the street leakage from the abdominal drainage site decreased Subjective ROS Limited/Unobtainable: No Constitutional: Reports: no symptoms HEENT: Repors: no symptoms Respiratory: Reports: no symptoms Allergies: Coded Allergies: No Known Allergies (Verified , 07/05/07) Objective Last 24 Hour Vital Signs Date Time Temp Pulse Resp B/P (MAP) Pulse Ox O2 Delivery O2 Flow Rate FiO2 01/21/18 16:00 Room Air 01/21/18 16:00 98.2 89 18 122/91 97 98.2 01/21/18 12:00 98.2 96 18 124/86 97 98.2 01/21/18 08:44 Room Air 01/21/18 08:00 98.4 88 18 125/84 98 98.4 01/21/18 04:00 98.2 85 17 117/75 97 98.2 01/21/18 00:00 97.0 88 17 123/82 97 97.0 01/20/18 20:00 97.7 98 18 123/85 98 97.7 Intake and Output 01/20/18 01/21/18 19:00 07:00 Intake Total 1080 ml 520 ml Output Total 300 ml Balance 780 ml 520 ml Intake Oral 1080 ml 300 ml IV Total 220 ml Output Urine Total 300 ml # Bowel Movements 3 5 General Appearance: WD/WN HEENT: normocephalic, atraumatic Respiratory/Chest: chest wall non-tender, normal breath sounds Cardiovascular: normal peripheral pulses, normal rate, regularly irregular Abdomen: normal bowel sounds, no organomegaly Microbiology Date/Time Source Procedure Growth Status 01/19/18 19:10 Blood Blood Culture - Preliminary NO GROWTH AFTER 24 HOURS Resulted 01/19/18 19:00 Blood Blood Culture - Preliminary NO GROWTH AFTER 24 HOURS Resulted Laboratory Tests 01/21/18 11:26: White Blood Count 2.9L, Red Blood Count 2.73L, Hemoglobin 9.0L, Hematocrit 26.4L , Mean Corpuscular Volume 97, Mean Corpuscular Hemoglobin 33.0H, Mean Corpuscular Hemoglobin Concent 34.1, Red Cell Distribution Width 13.7, Platelet Count 79L, Mean Platelet Volume 6.4L, Neutrophils (%) (Auto) , Lymphocytes (%) ( Auto) , Monocytes (%) (Auto) , Eosinophils (%) (Auto) , Basophils (%) (Auto) , Differential Total Cells Counted 100, Neutrophils % (Manual) 70, Lymphocytes % ( Manual) 19L, Monocytes % (Manual) 7, Eosinophils % (Manual) 3, Basophils % ( Manual) 0, Band Neutrophils 1, Platelet Estimate DecreasedL, Platelet Morphology Normal, Hypochromasia 1+, Sodium Level 136, Potassium Level 3.2L, Chloride Level 108H, Carbon Dioxide Level 21, Anion Gap 7, Blood Urea Nitrogen 8 , Creatinine 0.7, Estimat Glomerular Filtration Rate > 60, Glucose Level 117H, Calcium Level 7.9L, Phosphorus Level 4.1, Magnesium Level 1.8, Total Bilirubin 2.3H, Direct Bilirubin 0.9H, Aspartate Amino Transf (AST/SGOT) 51H, Alanine Aminotransferase (ALT/SGPT) 18, Alkaline Phosphatase 161H, Ammonia 66H, Total Protein 6.3L, Albumin 2.3L, Globulin 4.0, Albumin/Globulin Ratio 0.6L Current Medications Medications (Trade) Dose Ordered Sig/[place] Route PRN Reason Start Time Stop Time Status Last Admin Dose Admin Acetaminophen (Tylenol) 650 mg Q4H PRN ORAL T>100.5 01/19/18 22:00 02/18/18 21:59 Al Hydroxide/Mg Hydroxide (Mylanta II) 30 ml Q6H PRN ORAL dyspepsia 01/19/18 22:00 02/18/18 21:59 Cefepime HCl 1 gm/ Dextrose 110 ml @ 220 mls/hr EVERY 8 HOURS IV 01/19/18 23:00 01/26/18 22:59 01/21/18 13:21 Dextrose (Dextrose 50%) 25 ml STAT PRN IV Hypoglycemia 01/19/18 22:00 02/18/18 21:59 Dextrose (Dextrose 50%) 50 ml STAT PRN IV Hypoglycemia 01/19/18 22:00 02/18/18 21:59 Lactulose (Cephulac) 30 gm EVERY 6 HOURS ORAL 01/20/18 00:00 02/19/18 00:00 01/21/18 12:32 Lorazepam (Ativan 2mg/ml 1ml) 0.5 mg Q4H PRN IV For Anxiety 4/9/18 22:00 01/26/18 21:59 Morphine Sulfate (Morphine Sulfate) 2 mg Q4H PRN IVP PAIN 4-10 01/19/18 22:00 01/26/18 21:59 01/20/18 12:56 Ondansetron HCl (Zofran) 4 mg Q6H PRN IVP Nausea & Vomiting 01/19/18 22:00 02/18/18 21:59 Polyethylene Glycol (Miralax) 17 gm HSPRN PRN ORAL Constipation 01/19/18 22:00 02/18/18 21:59 Rifaximin (Xifaxan) 550 mg EVERY 12 HOURS ORAL 01/20/18 21:00 01/27/18 20:59 01/21/18 08:42 Zolpidem Tartrate (Ambien) 5 mg HSPRN PRN ORAL Insomnia 01/19/18 22:00 01/26/18 21:59 Jelly Pyle MD Jan 21, 2018 19:18
--- NOTE | 2018-01-22 13:18 | Discharge Summary ---
Discharge Summary Hospital Course Date of Admission Jan 19, 2018 at 18:53 Date of Discharge Jan 21, 2018 at 18:30 Admitting Diagnosis ABD PAIN HPI Elvin Hurt is a 37 year old male who was admitted on Jan 19, 2018 at 18:53 for Abdominal Pain Hospital Course [id number] Discharge Discharge Disposition Patient was discharged to Home (01) Ирина Sanchez NP Jan 22, 2018 13:18
--- NOTE | 2018-01-23 05:30 | Discharge Summary 2 SIG ---
DATE OF ADMISSION: 01/19/2018 DATE OF DISCHARGE: 01/21/2018 TOP AND SEAT COVER FITTER: Scott Baires M.D. BRIEF HOSPITAL COURSE: The patient is a 35-year-old male with unknown past medical history, however likely, alcohol abuse, ascites, and required paracenteses in the past, last paracenteses was one month ago, presented to ED complaining of abdominal pain. He had symptoms for the past three days. He denied nausea, vomiting, or diarrhea. On evaluation at ED, the patient had distended abdomen with ascites. Paracenteses was performed. Six liters were removed. He remained tachycardic with a heart rate of 130s although blood pressure was normal. He was started on ceftriaxone. Blood work showed hemoglobin of 8.6, hematocrit 26, and potassium was 3.2. Bilirubin was elevated. Serum alcohol level was 216. He had pancytopenia and elevated ammonia levels. He was started on lactulose and Xifaxan. There was initially leakage from the paracentesis site, however, abdominal drainage leakage decreased. Ascitic fluid was negative for malignant cells. Potassium was replenished. He was given albumin x1. Social service was contacted. The patient was offered placement for recup, however, the patient declined. He was eventually discharged home. FINAL DIAGNOSES: 1. Ascites. 2. Liver cirrhosis. 3. Hypokalemia. 4. Status post paracenteses. DISPOSITION: The patient was discharged home. Signed homeless discharge. DISCHARGE INSTRUCTIONS: [facility]. Jelly Pyle M.D. I have been assigned to dictate discharge summary on this account and I was not involved in the patient's management. Ирина Sanchez N.P. DR: ANTOINE JOB#: [id number] CC:
== END 2018-01-21 18:30 | disposition home or self-care (01) | DRG 432 ==
LOC: EDBD → MERGE 18:01 → EMR 18:51 → 4W 18:53 → EDBEDREQ 20:23
PROC: 0W9G3ZZ Drainage of Peritoneal Cavity, Percutaneous Approach (ICD-10-PCS; principal; 2018-01-19)
DX: K70.31 Alcoholic cirrhosis of liver with ascites (principal); G93.40 Encephalopathy, unspecified; R10.9 Unspecified abdominal pain; E87.6 Hypokalemia; F10.10 Alcohol abuse, uncomplicated; E11.9 Type 2 diabetes mellitus without complications
CPT/HCPCS: 36415; 71045; 74177; 80053; 80061; 80329; 82140; 82248; 82550; 83605; 83690; 83735; 83880; 84100; 84443; 84484; 85007; 85025; 85610; 85730; 87040; 87081; 88104; 89051; 93005; 93970; 99285; J8499